=== PATIENT | male | born 1990 | race Caucasian/White ===

== ENCOUNTER 2022-01-11 14:09 | Emergency (ER) | payer MEDICARE, MEDICAID, SELFPAY ==
[2022-01-11 14:15] VITALS: BP 113/85; PULSE 106; RESP 18; O2SAT 97; BMI 24.0
[2022-01-11 14:55] LABS: Basophils % 0.3 %; Eosinophils # 0.1 10^3/uL (0.0-0.8); Eosinophils % 0.8 %; Hematocrit 46.3 % (42.0-52.0); Hemoglobin 15.3 g/dL (11.7-16.6); Lymphocytes # 1.1 10^3/uL (0.8-4.8); Lymphocytes % 19.2 %; Mean Corpuscular Hemoglobin 32.1 pg (28.0-34.0); Mean Corpuscular Volume 97.1 fl (80-94); Mean Platelet Volume 11.8 fL (7.4-10.4); Monocytes # 0.4 10^3/uL (0.2-0.9); Monocytes % 5.9 %; Neutrophils # 4.36 10^3/uL (1.8-7.7); Neutrophils % 73.6 %; Nucleated Red Blood Cells % 0 %; Platelet Count 163 10^3/cmm (130-400); Red Blood Count 4.77 10^6/uL (4.1-5.3); Red Cell Distribution Width 12.8 % (12.1-15.1); White Blood Count 5.9 10^3/uL (4.0-10.0)
--- NOTE | 2022-01-11 15:03 | ED.C_ITS ---
HPI - Psych General: Chief Complaint: Psychiatric Symptoms Stated Complaint: MHE Time Seen by Provider: 01/11/22 14:30 Source: patient Mode of arrival: ambulatory Limitations: no limitations History of Present Illness: 31-year-old male presents emergency room is complaining of auditory hallucinations describing explicit violent hypersexual behaviors. He denies any intent or plan to act out on them. He denies any homicidal or suicidal thoughts. He does see a psychiatrist in [place] he was recently started on another medication avoid edema at. They state they did call the psychiatrist earlier advised to go to the emergency room to start on a short acting medication until the other medications became more effective. He has previously been hospitalized for acute psychosis when he lived in [place] but has been sometime ago. Onset (ago): day(s) Duration: constant History of same: Yes Relieving factors: none Exacerbating factors: none Context: new medication(s) Associated psychiatric symptoms: auditory hallucinations Associated symptoms: Deny visual hallucinations, delusions, depression, homicidal ideation, suicidal ideation or racing thoughts Treatments prior to arrival: none Review of Systems Const: Denies: fever(s), chills, body aches, change in appetite, fatigue or malaise ENMT: Denies: throat pain, ear or mastoid pain, nasal discharge or nasal congestion Card: Denies: chest pain, edema, dyspnea on exertion or orthopnea Resp: Denies: dyspnea, productive cough or non-productive cough GI: Denies: abdominal pain, nausea, vomiting, hematemesis, coffee ground emesis, diarrhea, constipation, bloating, hematochezia or melena : Denies: flank pain, dysuria, urinary frequency or urinary urgency Skin/Breast: Denies: rash or pruritus Psych: Denies: depression, visual hallucinations, suicidal ideation or homicidal ideation [facility] ED PFSH: Medical History (Updated 01/11/22 @ 15:49 by Carroll Contreras DO) Schizophrenia Social History (Updated 01/11/22 @ 15:08 by Carroll Contreras DO) Smoking and tobacco status: current every day smoker Alcohol intake: never Physical Exam Const: COMMON NORMALS: no acute distress GENERAL APPEARANCE: cooperative and comfortable ORIENTATION/CONSCIOUSNESS: Yes awake, Yes oriented to person, Yes oriented to place and Yes oriented to time HENMT: COMMON NORMALS: normocephalic, atraumatic and hearing grossly normal bilaterally HEAD & SCALP: normocephalic and atraumatic Resp: COMMON NORMALS: normal respiratory effort, No retractions, No use of accessory muscles and clear to auscultation bilaterally AUSCULTATION: clear to auscultation bilaterally Cardio: COMMON NORMALS: regular rate, regular rhythm and No murmurs present (Cardio) RATE: regular rate RHYTHM: regular rhythm GI: COMMON NORMALS: Soft to palpation and No hepatosplenomegaly present AUSCULTATION: Yes normoactive bowel sounds PALPATION: Yes Soft to palpation, No Tenderness to palpation present (GI), No Guarding due to palpation present (GI) and Yes No hepatosplenomegaly present Extremity: COMMON NORMALS: normal to inspection, capillary refill normal, no clubbing, cyanosis or edema, no calf tenderness and no pedal edema Neuro: SENSORIUM/ORIENTATION: Yes oriented to person, Yes oriented to place and Yes oriented to time Psych: THOUGHT CONTENT: No delusions Skin: COMMON NORMALS: no rashes or lesions noted GENERAL SKIN EXAM: no rashes or lesions noted Course Vital Signs: Vital signs: Vital Signs Pulse Rate 106 H 01/11/22 14:15 Respiratory Rate 18 01/11/22 14:15 Blood Pressure 113/85 01/11/22 14:15 Pulse Oximetry 97 01/11/22 14:15 Oxygen Delivery Me thod 01/11/22 14:15 MDM - Psych Medical Decision Making Close review of his medications a stopped Abilify and started him on Seroquel is on 25 at at bedtime after 7 days he supposed to increase to 50 at at bedtime he is only taking it for 3 days. I given 25 p.o. now and have him increase to 50 p.o. nightly and follow-up with his occupational therapy program director. He is not suicidal or homicidal and is managing the hallucinations well at this point. If they worsen or change return to the emergency room he does have good support service in place. Medical Records I reviewed the patient's medical records. Lab Data I reviewed the patient's lab results. : 01/11/22 02:50 01/11/22 02:50 Laboratory Results WBC 5.9 10^3/uL (4.0-10.0) 01/11/22 02:50 RBC 4.77 10^6/uL (4.1-5.3) 01/11/22 02:50 Hgb 15.3 g/dL (11.7-16.6) 01/11/22 02:50 Hct 46.3 % (42.0-52.0) 01/11/22 02:50 MCV 97.1 fl (80-94) H 01/11/22 02:50 MCH 32.1 pg (28.0-34.0) 01/11/22 02:50 MCHC 33.0 g/dL (30.0-36.0) 01/11/22 02:50 RDW 12.8 % (12.1-15.1) 01/11/22 02:50 Plt Count 163 10^3/cmm (130-400) 01/11/22 02:50 MPV 11.8 fL (7.4-10.4) H 01/11/22 02:50 Neut % (Auto) 73.6 % 01/11/22 02:50 Lymph % (Auto) 19.2 % 01/11/22 02:50 [place] % (Auto) 5.9 % 01/11/22 02:50 Eos % (Auto) 0.8 % 01/11/22 02:50 Baso % (Auto) 0.3 % 01/11/22 02:50 Neut # (Auto) 4.36 10^3/uL (1.8-7.7) 01/11/22 02:50 Lymph # (Auto) 1.1 10^3/uL (0.8-4.8) 01/11/22 02:50 [place] # (Auto) 0.4 10^3/uL (0.2-0.9) 01/11/22 02:50 Eos # (Auto) 0.1 10^3/uL (0.0-0.8) 01/11/22 02:50 Baso # (Auto) 0.0 10^3/uL (0.0-0.1) 01/11/22 02:50 Nucleated RBC % (auto) 0 % 01/11/22 02:50 Nucleated RBCs # 0.0 /100WBC 01/11/22 02:50 Sodium 139 mmol/L (136-145) 01/11/22 02:50 Potassium 4.5 mmol/L (3.5-5.1) 01/11/22 02:50 Chloride 104 mmol/L (98-107) 01/11/22 02:50 Carbon Dioxide 28 mmol/L (22-29) 01/11/22 02:50 Anion Gap 11.5 (5-19) 01/11/22 02:50 BUN 11 mg/dL (6-20) 01/11/22 02:50 Creatinine 1.0 mg/dL (0.7-1.2) 01/11/22 02:50 GFR Calculation 86.6 mL/min (90-130) L 01/11/22 02:50 Glucose 89 mg/dL (65-115) 01/11/22 02:50 Calculated Osmolality 287 mOsm/kg (285-295) 01/11/22 02:50 Calcium 9.1 mg/dL (8.5-10.5) 01/11/22 02:50 Total Bilirubin 0.6 mg/dL (0.15-1.2) 01/11/22 02:50 AST 35 U/L (0-40) 01/11/22 02:50 ALT 235 U/L (0-41) H 01/11/22 02:50 Alkaline Phosphatase 50 U/L (40-130) 01/11/22 02:50 Total Protein 7.1 g/dL (6.6-8.7) 01/11/22 02:50 Albumin 4.4 g/dL (3.5-5.2) 01/11/22 02:50 Globulin 2.7 g/dL (1.3-4.6) 01/11/22 02:50 Salicylates < 0.3 mg/dL (3-10) L 01/11/22 02:50 Acetaminophen < 5.0 ug/mL (10-30) L 01/11/22 02:50 Discharge Plan Discharge Patient Disposition: Home Clinical Impression: Schizophrenia Condition: Stable Prescriptions: No Action lamotrigine 150 mg tablet 150 mg PO BEDTIME sumatriptan succinate 25 mg tablet 25 mg PO DAILY PRN (Reason: Migraine Headache) mirtazapine 45 mg tablet 45 mg PO BEDTIME testosterone cypionate 200 mg/mL oil 200 mg IM Q7D Rx Instructions: On Fridays guanfacine 2 mg tablet 2 mg PO DAILY atomoxetine 40 mg capsule 40 mg PO DAILY Seroquel 25 mg Tablet 25 mg PO BEDTIME Rx Instructions: Take 25 mg at bedtime x 7 days then 50mg thereafter Discharge Orders: Discharge ED (Routine); Ordered 01/11/22 Ordered By: Carroll Contreras Referrals: Chan Patel MD [Primary Care Provider] - Discharge Diet: Usual diet Discharge Activity: Resume usual activity Patient Instructions: Opioid Safety Activity Restrictions/Additional Instructions: Increase her Seroquel to 50 mg at bedtime. You are given 25 mg while in the ER take 50 mg this evening as well. Coding Level of Care Code ED English As A Second Language Instructor for Riana Fwd Exam Comprehensive
[2022-01-11 15:17] LABS: Alanine Aminotransferase 235 U/L (0-41); Albumin Level 4.4 g/dL (3.5-5.2); Alkaline Phosphatase 50 U/L (40-130); Anion Gap 11.5 (5-19); Aspartate Amino Transferase 35 U/L (0-40); Blood Urea Nitrogen 11 mg/dL (6-20); Calcium 9.1 mg/dL (8.5-10.5); Carbon Dioxide 28 mmol/L (22-29); Chloride 104 mmol/L (98-107); Globulin 2.7 g/dL (1.3-4.6); Glomerular Filtration Rate 86.6 mL/min (90-130); Glucose 89 mg/dL (65-115); Osmolality Calculated 287 mOsm/kg (285-295); Potassium 4.5 mmol/L (3.5-5.1); Sodium 139 mmol/L (136-145); Total Bilirubin 0.6 mg/dL (0.15-1.2); Total Protein 7.1 g/dL (6.6-8.7)
[2022-01-11 15:19] LABS: Acetaminophen < 5.0 ug/mL (10-30); Salicylate < 0.3 mg/dL (3-10)
[2022-01-11] MEDS: quetiapine 25 mg Tablet PO (16:02)
== END 2022-01-11 16:03 | disposition home or self-care (01) ==
PROVIDERS: Emergency Provider Family Medicine; PCP Family Medicine
DX: F20.9 Schizophrenia, unspecified (principal); F17.210 Nicotine dependence, cigarettes, uncomplicated
CPT/HCPCS: 36415; 80053; 80307; 85025; 99283

== ENCOUNTER 2022-01-20 10:58 | Emergency (ER) | payer MEDICARE, MEDICAID, SELFPAY ==
[2022-01-20 11:00] VITALS: BMI 24.0
--- NOTE | 2022-01-20 11:58 | W.ED.GENADLT ---
HPI - General Adult General: Chief complaint: General Medical Stated complaint: Wants to see a Dr for meds? Time Seen by Provider: 01/20/22 11:29 Source: patient Mode of arrival: ambulatory Limitations: no limitations History of Present Illness: 31-year-old male presents to the ER today for medication refills. Patient reports he was here last week and his dose of Seroquel was changed. Patient understood he was post to be taking as needed throughout the day. Patient reports he is gone through 60 tablets of Seroquel in a week. Patient has an appointment with his psychiatrist on Friday however if he goes without his medications he has auditory hallucinations that are pretty severe. Patient denies any thoughts of suicide or self-harm at this time. Review of Systems General: Reports: 10 or more systems reviewed and unremarkable except in HPI and below PFSH ED PFSH: Medical History Schizophrenia Social History Smoking and tobacco status: current every day smoker Alcohol intake: never Physical Exam Const: COMMON NORMALS: no acute distress, average body habitus, patient oriented x3, no limitations, healthy appearing, alert and well nourished Resp: COMMON NORMALS: normal respiratory effort EFFORT & INSPECTION: Yes able to speak in complete sentences Cardio: COMMON NORMALS: regular rate and regular rhythm RATE: regular rate RHYTHM: regular rhythm Extremity: COMMON NORMALS: normal to inspection and full ROM Neuro: COMMON NORMALS: patient oriented x3 SENSORIUM/ORIENTATION: Yes alert Psych: COMMON NORMALS: mental status grossly normal, cooperative, normal affect, denies homicidal ideation and denies suicidal ideation; negative for denies hallucinations Skin: COMMON NORMALS: no rashes or lesions noted GENERAL SKIN EXAM: no rashes or lesions noted Course ED course: 31-year-old male presents to the ER today for medication refills. Patient came last week to the ER and his Seroquel was increased. Patient misunderstood the directions though and has been taking Seroquel throughout the day at varying times. Patient reports without the Seroquel he is hearing auditory hallucinations and voices. He denies thoughts of self-harm. Has an appoint with a psychiatrist on Friday. Vital Signs: Vital signs: Vital Signs Oxygen Delivery Me thod 01/20/22 11:00 MDM - General Adult Medical Decision Making 31-year-old male presents to the ER today for medication refills. Patient came last week to the ER and his Seroquel was increased. Patient misunderstood the directions though and has been taking Seroquel throughout the day at varying times. Patient reports without the Seroquel he is hearing auditory hallucinations and voices. He denies thoughts of self-harm. Has an appoint with a psychiatrist on Friday. I did go back and review his note from earlier in the week. Patient was not supposed to be doing this as needed. Patient was told to increase that night however not take it as needed. I discussed this with patient. We will start patient on 100 mg twice daily of the Seroquel to see if that helps. Patient does have the appointment Friday and should keep it. Patient was given a 1 week supply of Seroquel at this time. Critical Care Time Critical Care Time: Critical Care Time: No Discharge Plan Discharge Patient Disposition: Home Clinical Impression: Schizophrenia Condition: Stable Prescriptions: New Seroquel 50 mg tablet 100 mg PO BID Qty: 28 0RF No Action lamotrigine 150 mg tablet 150 mg PO BEDTIME sumatriptan succinate 25 mg tablet 25 mg PO DAILY PRN (Reason: Migraine Headache) mirtazapine 45 mg tablet 45 mg PO BEDTIME testosterone cypionate 200 mg/mL oil 200 mg IM Q7D Rx Instructions: On Fridays guanfacine 2 mg tablet 2 mg PO DAILY atomoxetine 40 mg capsule 40 mg PO DAILY Seroquel 25 mg Tablet 25 mg PO BEDTIME Rx Instructions: Take 25 mg at bedtime x 7 days then 50mg thereafter Discharge Orders: Discharge ED (Routine); Ordered 01/20/22 Ordered By: Rosina Montanez Referrals: Chan Patel MD [Primary Care Provider] - Discharge Diet: Usual diet Discharge Activity: Resume usual activity Patient Instructions: Opioid Safety Activity Restrictions/Additional Instructions: No medication change. This is a different dose so you will take 2 tabs in the morning and 2 tabs at night. Do not exceed this dose at this time. Follow-up with psychiatrist on Friday as scheduled appointment. Return to the ER with new or worsening symptoms. Coding Level of Care Code ED Grievance Coordinator for Riana Ocasio
== END 2022-01-20 12:00 | disposition home or self-care (01) ==
PROVIDERS: Emergency Provider Physician Assistant; PCP Family Medicine
DX: F20.9 Schizophrenia, unspecified (principal); Z76.0 Encounter for issue of repeat prescription
CPT/HCPCS: 99283

== ENCOUNTER 2022-01-25 06:51 | Outpatient (CLI) | payer MEDICARE, MEDICAID, SELFPAY ==
--- NOTE | 2022-01-25 07:15 | MR_ITS ---
WS: [id number] MRI HEAD WITHOUT CONTRAST TECHNIQUE: Incomplete examination due to claustrophobia. Patient unable to finish examination. Contra st not administered. Sagittal T1, T2 axial, T2 axial FLAIR, axial and coronal T1 images, axial susceptibility weighted iglesia ging, axial diffusion weighted images, and coronal T2 images were obtained. CLINICAL INFORMATION: SEIZURE LIKE ACTIVITY COMPARISON: None. FINDINGS: Incomplete examination due to claustrophobia. Contrast not administered. No evidence of restricted diffusion to suggest acute ischemia. Ventricular system and basal cisterns are patent. No suspicious intracranial signal abnormalities. Normal vernon-white differentiation. Justyna l posterior fossa. Normal vascular flow voids at the skull base. No extra-axial fluid collections. No mass or mass effect. Normal optic chiasm and pituitary infundibulum. Temporal lobes and hippocampal formations are normal in appearance. No signal abnormalities in the mesial temporal lobes. No evidence of mesial temporal s clerosis. Slightly prominent vessels in the RIGHT frontoparietal junction nonspecific but may repres ent small venous angioma. This is likely incidental. MR/MR head wo con* [id number] IMPRESSION: 1. No evidence of restricted diffusion to suggest acute ischemia. 2. No suspicious intracranial signal abnormalities. Normal vernon-white differen tiation. 3. Temporal lobes and hippocampal formations are normal in appearance. No evid ence of mesial temporal sclerosis. No signal abnormalities in the mesial tempor al lobes. 4. Slightly prominent vessels in the RIGHT frontoparietal junction nonspecific but may represent small venous angioma. This is likely incidental. 5. Normal optic chiasm and pituitary infundibulum. 6. No other suspicious findings.
== END 2022-01-25 06:52 | disposition home or self-care (01) ==
PROVIDERS: PCP Family Medicine; Visit Provider Family Medicine
DX: R56.9 Unspecified convulsions (principal)
CPT/HCPCS: 70551

== ENCOUNTER 2022-01-29 12:28 | Emergency (ER) | payer MEDICARE, MEDICAID, SELFPAY ==
[2022-01-29 12:53] VITALS: BMI 24.0
[2022-01-29 12:57] VITALS: BP 110/43; PULSE 74; RESP 18; TEMP 36.8; O2SAT 99
--- NOTE | 2022-01-29 14:19 | PC.NURSE ---
PT FAMILY STATES PT HAS BEEN TAKEN OFF OF HIS ABILIFY. SINCE THEN PT HAS DEVELOPED TARDIVE DYSKINESIA- PER PT/FAMILY. PT STATES WHEN HE TRIES TO RELAX THE JERKING MOTIONS BEGIN AND HE GETS VERY ANXIOUS CAUSING HIM TO HAVE SHORTNESS OF BREATH AND CHEST PAIN. PT STATES HE ALSO HAS AUDITORY HALLUCINATIONS THAT TELL HIM HIS WILL LEAVE HIM FOR HIS BEHAVIOR. PT STATES HE ALSO HAS VISUAL HALLUCINATIONS THAT SHOW HIM, FOR EXAMPLE, A COUNTRY SIDE. PT STATES THE HALLUCINATIONS DO NOT PROMPT HIM TO HARM HIMSELF OR OTHERS. PT DENIES ANY SI OR HI.
[2022-01-29 14:28] VITALS: BP 133/89; RESP 16
[2022-01-29 14:41] LABS: Add Urine Microscopic? NO; Charge for UA Resulting for Rev
[2022-01-29 14:49] LABS: Basophils % 0.3 %; Eosinophils # 0.1 10^3/uL (0.0-0.8); Eosinophils % 0.8 %; Hematocrit 49.4 % (42.0-52.0); Lymphocytes # 1.6 10^3/uL (0.8-4.8); Lymphocytes % 26.6 %; Mean Corpuscular HGB Conc 32.4 g/dL (30.0-36.0); Mean Corpuscular Hemoglobin 32.1 pg (28.0-34.0); Mean Corpuscular Volume 99.2 fl (80-94); Mean Platelet Volume 11.3 fL (7.4-10.4); Monocytes # 0.6 10^3/uL (0.2-0.9); Monocytes % 10.1 %; Nucleated Red Blood Cells % 0 %; Platelet Count 193 10^3/cmm (130-400); Red Blood Count 4.98 10^6/uL (4.1-5.3); Red Cell Distribution Width 12.8 % (12.1-15.1); White Blood Count 6.1 10^3/uL (4.0-10.0)
[2022-01-29 14:49] LABS: Bilirubin Urine Neg (Negative); Blood Urine Neg (Negative); Glucose Urine UA Norm (Normal); Ketones Urine Negative (Negative); Leukocyte Esterase Urine Negative (Negative); Nitrate Urine Negative (Negative); Protein Urine Neg (Negative); Specific Gravity, Urine 1.015 (1.005-1.030); Urine Appearance Clear (CLEAR); Urine Color Yellow (Yellow); Urobilinogen Urine Norm (Negative); pH Urine 6 (5-7)
[2022-01-29 14:52] LABS: Amphetamines Screen Urine Negative (Negative); Barbiturates Screen Urine Negative (Negative); Benzodiazepines Screen Urine Negative (Negative); Cocaine Screen Urine Negative (Negative); Opiate Screen Urine Negative (Negative); PCP Screen Urine Negative (Negative); THC Screen Urine Positive (Negative)
--- NOTE | 2022-01-29 14:54 | W.ED.PSYCHS ---
HPI - Psych General: Chief Complaint: Psychiatric Symptoms Stated Complaint: MHE Time Seen by Provider: 01/29/22 14:28 Source: patient Mode of arrival: ambulatory History of Present Illness: 31-year-old male presents emergency room with intermittent hallucinations auditory and visual. He recently had an increase in his antipsychotic he feels like it was not enough. He denies any suicidal or homicidal ideation. PENDING SALE TO [facility] ED PFSH: Medical History Schizophrenia Social History Smoking and tobacco status: current every day smoker Alcohol intake: never Course Vital Signs: Vital signs: Vital Signs Temperature 98.2 F 01/29/22 12:57 Pulse Rate 74 01/29/22 12:57 Respiratory Rate 16 01/29/22 14:28 Blood Pressure 133/89 01/29/22 14:28 Pulse Oximetry 99 01/29/22 12:57 Oxygen Delivery Me thod 01/29/22 12:57 MDM - Psych Medical Decision Making Signed up to see the patient entered initial labs and reviewed the nurse triage. Unfortunately I was unable to get to the patient we had several other patients requiring immediate attention. I had initiated labs to try to decrease patient's overall wait time and advance his care. While labs were in process patient became agitated and wanted to smoke when he was told he could not smoke inside the hospital or leave the hospital to smoke he became upset and left AMA. The nurse rescreen him for suicidal or homicidal ideation finding none ultimately he was allowed to leave AGAINST MEDICAL ADVICE we had nothing that would require inpatient care or justify a 96-hour hold. Lab Data : 01/29/22 14:37 01/29/22 14:37 Laboratory Results WBC 6.1 10^3/uL (4.0-10.0) 01/29/22 14:37 RBC 4.98 10^6/uL (4.1-5.3) 01/29/22 14:37 Hgb 16.0 g/dL (11.7-16.6) 01/29/22 14:37 Hct 49.4 % (42.0-52.0) 01/29/22 14:37 MCV 99.2 fl (80-94) H 01/29/22 14:37 MCH 32.1 pg (28.0-34.0) 01/29/22 14:37 MCHC 32.4 g/dL (30.0-36.0) 01/29/22 14:37 RDW 12.8 % (12.1-15.1) 01/29/22 14:37 Plt Count 193 10^3/cmm (130-400) 01/29/22 14:37 MPV 11.3 fL (7.4-10.4) H 01/29/22 14:37 Neut % (Auto) 62.0 % 01/29/22 14:37 Lymph % (Auto) 26.6 % 01/29/22 14:37 [place] % (Auto) 10.1 % 01/29/22 14:37 Eos % (Auto) 0.8 % 01/29/22 14:37 Baso % (Auto) 0.3 % 01/29/22 14:37 Neut # (Auto) 3.80 10^3/uL (1.8-7.7) 01/29/22 14:37 Lymph # (Auto) 1.6 10^3/uL (0.8-4.8) 01/29/22 14:37 [place] # (Auto) 0.6 10^3/uL (0.2-0.9) 01/29/22 14:37 Eos # (Auto) 0.1 10^3/uL (0.0-0.8) 01/29/22 14:37 Baso # (Auto) 0.0 10^3/uL (0.0-0.1) 01/29/22 14:37 Nucleated RBC % (auto) 0 % 01/29/22 14:37 Nucleated RBCs # 0.0 /100WBC 01/29/22 14:37 Urine Color Yellow (Yellow) 01/29/22 14:35 Urine Appearance Clear (CLEAR) 01/29/22 14:35 Urine pH 6 (5-7) 01/29/22 14:35 Ur Specific [place] 1.015 (1.005-1.030) 01/29/22 14:35 Urine Protein Neg (Negative) 01/29/22 14:35 Urine Glucose (UA) Norm (Normal) 01/29/22 14:35 Urine Ketones Negative (Negative) 01/29/22 14:35 Urine Blood Neg (Negative) 01/29/22 14:35 Urine Nitrate Negative (Negative) 01/29/22 14:35 Urine Bilirubin Neg (Negative) 01/29/22 14:35 Urine Urobilinogen Norm mg/dL (Negative) 01/29/22 14:35 Ur Leukocyte Esterase Negative (Negative) 01/29/22 14:35 Urine Opiates Screen Negative ng/mL (Negative) 01/29/22 14:35 Ur Barbiturates Screen Negative ng/mL (Negative) 01/29/22 14:35 Ur Phencyclidine Scrn Negative ng/mL (Negative) 01/29/22 14:35 Ur Amphetamines Screen Negative ng/mL (Negative) 01/29/22 14:35 U Benzodiazepines Scrn Negative ng/mL (Negative) 01/29/22 14:35 Urine Cocaine Screen Negative ng/mL (Negative) 01/29/22 14:35 U Marijuana (THC) Screen Positive ng/mL (Negative) H 01/29/22 14:35 Discharge Plan Discharge Patient Disposition: Left Against Medical Advice Clinical Impression: Schizophrenia Prescriptions: No Action lamotrigine 150 mg tablet 150 mg PO BEDTIME sumatriptan succinate 25 mg tablet 25 mg PO DAILY PRN (Reason: Migraine Headache) mirtazapine 45 mg tablet 45 mg PO BEDTIME testosterone cypionate 200 mg/mL oil 200 mg IM Q7D Rx Instructions: On Fridays guanfacine 2 mg tablet 2 mg PO DAILY atomoxetine 40 mg capsule 40 mg PO DAILY Seroquel 25 mg Tablet 25 mg PO BEDTIME Rx Instructions: Take 25 mg at bedtime x 7 days then 50mg thereafter Seroquel 50 mg tablet 100 mg PO BID Qty: 28 0RF Referrals: Chan Patel MD [Primary Care Provider] - Coding Level of Care Code ED Track Liner Operator for Riana Ocasio
[2022-01-29 15:03] LABS: Acetaminophen < 5.0 ug/mL (10-30); Alanine Aminotransferase 17 U/L (0-41); Albumin Level 4.4 g/dL (3.5-5.2); Alcohol Level < 10 mg/dL (0-10); Alkaline Phosphatase 65 U/L (40-130); Anion Gap 13.9 (5-19); Aspartate Amino Transferase 15 U/L (0-40); Blood Urea Nitrogen 13 mg/dL (6-20); Calcium 9.7 mg/dL (8.5-10.5); Carbon Dioxide 28 mmol/L (22-29); Chloride 99 mmol/L (98-107); Globulin 3.3 g/dL (1.3-4.6); Glomerular Filtration Rate 86.6 mL/min (90-130); Glucose 87 mg/dL (65-115); Osmolality Calculated 283 mOsm/kg (285-295); Potassium 3.9 mmol/L (3.5-5.1); Salicylate < 0.3 mg/dL (3-10); Sodium 137 mmol/L (136-145); Total Bilirubin 0.3 mg/dL (0.15-1.2); Total Protein 7.7 g/dL (6.6-8.7)
== END 2022-01-29 14:53 | disposition left against medical advice (07) ==
PROVIDERS: Emergency Provider Family Medicine; PCP Family Medicine
DX: F20.9 Schizophrenia, unspecified (principal); F17.200 Nicotine dependence, unspecified, uncomplicated; Z53.29 Procedure and treatment not carried out because of patient's decision for other reasons
CPT/HCPCS: 36415; 80053; 80306; 80307; 81003; 85025; 99283

== ENCOUNTER → 2022-03-12 13:06 | Outpatient (BNVA) | payer MEDICARE, MEDICAID, SELFPAY | PROVIDERS: PCP Family Medicine; Referring Provider Family Medicine; Visit Provider Specialist | DX: R56.9 Unspecified convulsions (principal) | CPT/HCPCS: 95812; 95816 ==

== ENCOUNTER → 2022-04-09 11:13 | Outpatient (BNVA) | payer MEDICARE, MEDICAID, SELFPAY | PROVIDERS: PCP Family Medicine; Referring Provider Family Medicine; Visit Provider Specialist | DX: F44.1 Dissociative fugue (principal); F20.9 Schizophrenia, unspecified; R56.9 Unspecified convulsions | CPT/HCPCS: 99205 ==